=== PATIENT | female | born 1960 | race Caucasian/White ===

== ENCOUNTER → 2020-06-08 16:43 | Outpatient (CLI) | payer MEDICARE, OTHER, SELFPAY ==
--- NOTE | 2020-06-08 16:47 | DI.MRI.S_ITS ---
PROCEDURE: MR ANGIO HEAD WO CON INDICATIONS: DIZZINESS AMD GIDDINESS TECHNIQUE: Noncontrast axial 3-D [id number] MR angiogram, with 3-dimensional maximum intensity projection (MIP) reformats of the internal carotid arteries and posterior circulation then performed. COMPARISON: [facility], MR, BRAIN WITHOUT CONTRAST, 11/08/2014, 13:31. FINDINGS: Image quality: Excellent. Anterior circulation: Intracranial internal carotid arteries demonstrate normal size and intraluminal flow signal. The flow within the paired anterior cerebral arteries is normal and symmetric. The flow within the middle cerebral arteries is normal and symmetric. The anterior communicating artery is not well seen. No stenoses, occlusions, or aneurysms. Posterior circulation: Visualized portions of the vertebral arteries demonstrate normal caliber, and join to form a normal appearing basilar artery. The flow within the posterior cerebral arteries is normal and symmetric. No stenoses, occlusions, or aneurysms. Note is made of a prominent mucous retention cyst within the left maxillary sinus. IMPRESSION: No significant intracranial arterial abnormality is detected. No imaging explanation is found for this patient's presenting symptoms. Dictated by: Micah Torres M.D. on 06/08/2020 at 16:53 Approved by: Micah Torres M.D. on 06/08/2020 at 16:54
== END ==
PROVIDERS: Referring Provider Family Medicine; Visit Provider Family Medicine
DX: R42 Dizziness and giddiness (principal)
CPT/HCPCS: 70544

== ENCOUNTER → 2020-06-26 15:26 | Outpatient (CLI) | payer MEDICARE, OTHER, SELFPAY ==
--- NOTE | 2020-06-26 15:32 | DI.MRI.S_ITS ---
PROCEDURE: MR HEAD/BRAIN WO/W CON INDICATIONS: Dizziness and giddiness TECHNIQUE: Noncontrast axial T1 spin echo, axial T2 fast spin echo, sagittal and axial FLAIR, coronal T2 fast spin echo, axial gradient echo, axial diffusion and ADC through the brain. After the administration of contrast, axial and coronal T1 spin echo with fat saturation through the brain. COMPARISON: [facility], MR, BRAIN WITHOUT CONTRAST, 11/08/2014, 13:31. [facility], MR, MR ANGIO HEAD WO CON, 06/08/2020, 17:20. FINDINGS: Image quality: Excellent. CSF spaces: Basal cisterns are patent. No extra-axial fluid collections. Ventricles are normal in size and shape. Brain: No midline shift. No intracranial bleeds or masses. No abnormal intracranial enhancement. In this patient with this given history, scrutiny is given to the region of the tuber cinereum. No masses or abnormal enhancement can be seen within this region. There is cerebral volume loss for age. There is periventricular white matter chronic small vessel ischemic change. The brainstem appears normal. Diffusion-weighted images demonstrate no acute ischemic insults. No chronic ischemic insults. Normal intravascular flow voids are present. Skull and face: Left-sided craniotomy changes are seen. Calvarial marrow is normal in signal. Orbits appear normal. Sinuses: There is a focal mucous retention cyst seen involving left maxillary sinus. The paranasal sinuses otherwise are relatively clear. Moderate abnormal fluid can be seen within mastoid air cells. IMPRESSION: No imaging explanation is found for this patient's presenting symptoms. No masses or abnormal enhancement can be seen. Moderate abnormal fluid can be seen within the mastoid air cells on both sides, which is similar to 2015. Prior left-sided craniotomy change. Dictated by: Micah Torres M.D. on 06/26/2020 at 15:26 Approved by: Micah Torres M.D. on 06/26/2020 at 15:29
== END ==
PROVIDERS: PCP Family Medicine; Referring Provider Family Medicine; Visit Provider Family Medicine
DX: R42 Dizziness and giddiness (principal)
CPT/HCPCS: 70553; A9579